=== PATIENT | female | born 1965 | race Asian ===

== ENCOUNTER 2021-03-30 01:58 | Emergency (ER) | payer MEDICAID, OTHER ==
[~2021-03-30] VITALS: Ht 160 cm; Wt 54.4 kg
--- NOTE | 2021-03-30 02:01 | NUR ---
PT AAOX4, BIBRA FROM HOME C/O WOKE UP FEELING DIZZY. PT REPORTS THAT SHE HASN'T TAKEN HER BP MEDICATION. PLACED IN BED 2 ON RAT [employer] AND PULSE OX. NOTED HYPERTENSIVE. ER MD AT BEDSIDE FOR EVAL. AWAITING ORDERS.
[2021-03-30] MEDS ORDERED: hydrALAZINE HCL IV 20 MG VIAL ONE (02:23)
[2021-03-30] MEDS ORDERED: hydrALAZINE HCL IV 20 MG VIAL IV ONE (02:30)
[2021-03-30 02:37] LABS: BASOPHILS # (AUTO) 0.1 /CMM (0.0-0.2); BASOPHILS % (AUTO) 1.1 % (0.0-2.0); EOSINOPHILS % (AUTO) 1.8 % (0.0-6.0); HEMATOCRIT 40 % (33-45); LYMPHOCYTES # (AUTO) 3.8 /CMM (0.8-4.8); MEAN CORPUSCULAR HGB CONC 33 g/dl (31.0-36.0); MEAN CORPUSCULAR VOLUME 89 fL (82-100); MONOCYTES # (AUTO) 0.5 /CMM (0.1-1.30); MONOCYTES % (AUTO) 6.2 % (2.0-12.0); NEUTROPHILS # (AUTO) 3.7 /CMM (1.8-8.9); NEUTROPHILS % (AUTO) 44.9 % (43.0-81.0); PLATELET COUNT (AUTO) 249 /CMM (150-450); RED BLOOD CELL COUNT(AUTO) 4.45 MIL/uL (4.0-5.2); WHITE BLOOD COUNT (AUTO) 8.3 K/uL (4.3-11.0)
[2021-03-30 02:50] LABS: ALANINE AMINOTRANSFERASE 54 U/L (12-78); ALBUMIN 4.2 g/dL (3.4-5.0); ALKALINE PHOSPHATASE 83 U/L (46-116); ASPARTATE AMINOTRANSFERASE 34 U/L (15-37); BILIRUBIN,TOTAL 0.2 mg/dL (0.2-1.0); CALCIUM, SERUM 9.3 mg/dL (8.5-10.1); CARBON DIOXIDE 28 mmol/L (21-32); CHLORIDE 105 mmol/L (98-107); CREATININE 0.9 mg/dL (0.6-1.3); GLUCOSE 163 mg/dL (74-106); POTASSIUM 3.4 mmol/L (3.5-5.1); SODIUM SERUM 144 mmol/L (136-145); TOTAL PROTEIN, SERUM 8.7 g/dL (6.4-8.2); UREA NITROGEN, BLOOD 19 mg/dL (7-18)
[2021-03-30 02:59] LABS: BILIRUBIN,DIRECT 0.1 mg/dL (0.0-0.2)
[2021-03-30] MEDS ORDERED: ONDANSETRON HCL/PF 4 MG/2 ML VIAL ONE (03:29)
[2021-03-30] MEDS ORDERED: MECLIZINE HCL 12.5 MG TABLET PO ONE (03:30)
[2021-03-30] MEDS ORDERED: ONDANSETRON HCL/PF 4 MG/2 ML VIAL IV ONE (03:30)
[2021-03-30] MEDS ORDERED: IV NS 0.9% 500 ML IV ONE (03:30)
[2021-03-30] MEDS ORDERED: MECLIZINE HCL 12.5 MG TABLET ONE (03:30)
--- NOTE | 2021-03-30 07:04 | NUR ---
PATIENT'S DAUGHTER WILL ARRIVE IN 10 MINUTES.
--- NOTE | 2021-03-30 07:20 | NUR ---
IV removed. Catheter intact and site benign. Pressure and 4x4 applied to site. No bleeding noted.
--- NOTE | 2021-03-30 07:21 | NUR ---
PICKED UP BY DAUGHTER. WIGGINS.
--- NOTE | 2021-03-30 07:21 | NUR ---
Patient discharged to home in stable condition. Written and verbal after care instructions given. Patient verbalizes understanding of instruction.
--- NOTE | 2021-03-30 07:21 | NUR ---
Jagdeep sunshine in [facility] - 03/30/21 at 0721 by DEVONTE DC
[2021-03-30 07:24] VITALS: BP 147/88
== END 2021-03-30 07:25 | disposition home or self-care (01) ==
LOC: ER 02:00
DX: R42 Dizziness and giddiness (principal); I10 Essential (primary) hypertension
CPT/HCPCS: 36415; 70450; 71045; 80048; 80076; 82962; 84484; 85025; 93005; 96374; 96375; 99285; J0360; J2405; J8597